=== PATIENT | male | born 1975 | race Caucasian/White ===

== ENCOUNTER 2016-06-04 17:36 | Emergency (ER) | payer MEDICAID, OTHER ==
[2016-06-04] MEDS ORDERED: Sodium Chloride 0.9% 1,000 ML ONE (18:32)
--- NOTE | 2016-06-04 18:34 | EDM.PDOC ---
ED HPI ENT - General Chief Complaint: ENT Problem Stated Complaint: NASAL SURGERY EARLIER TODAY, BLOODY NOSE Time Seen by Provider: 06/04/16 17:55 Source of Information: Reports: Patient, Family History Limitations: Reports: No limitations - History of Present Illness INITIAL COMMENTS - FREE TEXT/NARRATIVE: 40-year-old male presents the ED with active bleeding from bilateral nares. Patient had surgery with ear nose and throat surgeon Dr. Khan at [facility] in [facility] earlier this morning. He was still oozing a bit when he was discharged about 1400 hours but was felt to be within normal limits. In the last 2 hours and also started to aggressively bleed bilaterally perhaps worse on the right as compared to the left. He's coughing up blood and clots and vomiting at times of dark maroon blood as well.heals like he is going to pass out. It is choking anytime and afraid to lay down due to blood running down the back of his throat. Symptom Onset Date: 06/04/16 (1600 hours) Timing/Duration: Reports: Hour(s):, Sudden onset Severity: moderate (2 severe) Location: Reports: right nares, left nares Quality: Reports: Other (he has sprayed Afrin nasal spray up into the nares bilaterally as instructed by his ear nose and throat surgeon with little relief of the bleeding.) Improves with: Reports: None Worsens with: Reports: Other (cannot lay down as he chokes on the blood running down the back of his throat.) Treatments INSURANCE AGENCY MANAGER: Reports: Other (see below) (Afrin nasal spray) - Related Data Allergies/ADRs: Allergies Allergy/AdvReac Type Severity Reaction Status Date / Time alcohol Allergy Hives Verified 06/04/16 17:49 shellfish derived Allergy Other Verified 06/04/16 17:49 warfarin [From Coumadin] Allergy Other Verified 06/04/16 17:49 Home Meds: Home Meds Multivitamin [Multivitamins] 1 tab PO DAILY 06/04/16 [History] Oxymetazoline HCl [Afrin] 1 - 2 spray NASBOTH Q12H 06/04/16 [History] oxyCODONE HCl/Acetaminophen [oxyCODONE-Acetaminophen 5-325] 1 - 2 tab PO Q6H PRN 06/04/16 [History] Past Medical History - Past Surgical History HEENT Surgical History: Reports: Naso-sinus surgery (head turbinectomy and is nasal septoplasty carried out today) Social & Family History - Tobacco Use Smoking Status *Q: Never Smoker - Caffeine Use Caffeine Use: Reports: None - Recreational Drug Use Recreational Drug Use: No - Living Situation & Occupation Living situation: Reports: Occupation: employed ED ROS ENT - Review of Systems Review Of Systems: See Below Constitutional: Reports: weakness HEENT: Reports: Nosebleed, Nose pain Respiratory: Reports: no symptoms Cardiovascular: Reports: No symptoms Endocrine: Reports: no symptoms GI/Abdominal: Reports: Nausea, Vomiting (vomiting of blood and clot mostly maroon in color.) : Reports: no symptoms Musculoskeletal: Reports: no symptoms, muscle pain Skin: Reports: diaphoresis Neurological: Reports: no symptoms Psychiatric: Reports: No symptoms ED EXAM, ENT - Physical Exam Exam: See Below Exam Limited By: Physical impairment (patient is actively bleeding from both nares that are filled with clots. He is vomiting up blood and clots and spitting up blood and clots as well.) General Appearance: moderate distress (he is pallid and mildly diaphoretic. Vital lied down as he chokes on the blood.) Nose: other (I removed the dressing from under his naris which was soaked with blood. On inspection I removed as much clot as possible from both nares but could not ascertain where the bleeding was coming from. Due to the nature of his surgery with septoplasty I sprayed Afrin into both nares in a significant quantity probably half a bottle. I then packed the anterior aspect of the naris with half-inch to be soaked in cocaine and Afrin gently so as not to move the septum out of position. Debbie left in place for approximately 15 minutes the baby pain probably soaked with blood and he continued to bleed actively from both nares. Patient then had basal days vagal attack and became extremely diaphoretic with vomiting. It appears that he is bleeding posteriorly as well as anteriorly from the naris. Therefore further attempts at trying to localize site of bleeding were aborted patient will be sent to [facility] in [facility] by ambulance.) Mouth/Throat: Other (clots bilaterally in the nasopharynx behind the soft palate. He was able to expectorate a good deal he of these but they Accumulating Quite Quickly.) Neck: normal inspection, supple, non-tender, full range of motion. No: lymphadenopathy (L) Respiratory/Chest: no respiratory distress, lungs clear, normal breath sounds, no accessory muscle use Cardiovascular: normal peripheral pulses, no edema, no gallop, no murmur, tachycardia (resting heart rate 138 per minute.) GI/Abdominal: soft, abnormal bowel sounds: (hyperactive) Extremities: normal inspection, normal range of motion, non-tender, normal capillary refill Neurological: alert, oriented, CN II-XII intact, normal cognition Psychiatric: anxious (moderately anxious appropriately.) Skin: Cool, Diaphoretic (clammy) ED ENT PROCEDURES - Epistaxis Procedure Indication: epistaxis, uncontrolled Recent anticoagulants/antiplatlets: No Uncontrolled HTN: No Recent septal/nasal surgery: Yes (had turbinectomy and septoplasty carried out earlier this morning by Dr. Khan in [place].) Site of bleeding: right nare, left nare, anterior, posterior, other (not able to identify source of blood loss. It appears to be posterior and most likely on the right side.) Clearing of clots: suction Topical Meds: phenylephrine (spirin), topical cocaine, other Ice pack to area: Yes Chemical cautery: other (not able to ever identify any specific source of blood loss and therefore no cautery was carried out.) Anterior Packing: other (dental anterior packing was carried out only with half- inch to be soaked in cocaine and Afrin so as not to move the septum plasty. This did seem to bring some control of the bleeding after 15 minutes.) Course - Vital Signs Last Recorded V/S: Last Vital Signs Temp 36.8 C 06/04/16 17:44 Pulse 137 H 06/04/16 17:44 Resp 18 06/04/16 17:44 BP 133/101 H 06/04/16 17:44 Pulse Ox 98 06/04/16 17:44 - Orders/Labs/Meds Meds: Medications Discontinued Medications Generic Name Dose Route Start Last Admin Trade Name Noamq PRN Reason Stop Dose Admin Cocaine HCl Confirm 06/04/16 18:05 Cocaine Hcl Administered 06/04/16 18:06 Dose 4 ml .ROUTE .STK-MED ONE Sodium Chloride Confirm 06/04/16 18:32 Normal Saline Administered 06/04/16 18:33 Dose 1,000 mls @ as directed .ROUTE .STK-MED ONE Metoclopramide HCl 7.5 mg 06/04/16 18:39 Reglan IVPUSH 06/04/16 18:40 ONETIME ONE - Radiology Interpretation Free Text/Narrative:: 40-year-old male presents to the ED with bilateral nasal hemorrhage postop septoplasty and turbinectomy done earlier today by Dr. Khan ear nose and throat surgeon at [facility]. Patient was discharged at 1400 hours today and has some slight bruising per naris at which was felt to be within normal limits. About 1600 hours no started to bleed and then to begin to bleed very heavily. It squirted Afrin nasal spray into each naris apparently with no relief of the bleeding. Upon arrival here I removed the dressing from under his naris as was soaked with blood. Both nares were packed with blood clot and I removed as much of this as possible. He started vomiting up blood and clot in a maroon color. Afrin was sprayed into each naris about a half a bottle to try and provide some degree of control of the hemorrhage but this did not help much. Anterior naris was packed gently with half inch tube gauze soaked in cocaine and Afrin gently so as not to move the septoplasty. This did bring minor control of the bleeding in the anterior nares but appears to be bleeding posteriorly primarily on the right side down the back of his throat. Suffered two vasovagal events while in the ED.blood pressure dropped to as low as 74 systolic at one time. Decision made to send him back to [place] to ear nose and throat surgery for definitive management in the operating room as we do not have this capability. IV of normal saline was started at open. Hemoglobin and hematocrit were ordered. I was able to speak to Dr. Khan as he happens to be machine feeder floorperson this weekend and he is accepted care of this patient. Patient is to travel to the emergency room at [facility] for definitive management likely in the operating room. He is to remain n.p.o. He was given Reglan 7.5 mg IV here to hopefully help stop further vomiting. Paramedics were instructed that they may give him a milligram of Ativan if necessary to provide some degree of sedation. - Re-Assessments/Exams Free Text/Narrative Re-Assessment/Exam: 06/04/16 19:15 hemoglobin is 13.9. Hematocrit was 40.2.BP at the time of discharge was 131/88 with a heart rate of 112. Departure - Departure Time of Disposition: 19:00 Disposition: DC/Tfer to Acute Hospital 02 Condition: serious Clinical Impression: Arterial nasal hemorrhage Forms: ED Department Discharge Additional Instructions: Patient transferred back to [facility] in [facility] where he had ear nose and throat surgery Dr. Khan operate on him earlier today with a bilateral turbinectomy and septoplasty. Sent by EMS to do aggressive bleeding per naris bilaterally. Vasovagal attack x2 in the ED with loss of consciousness.appears to be having an arterial bleed from the right side posteriorly which was not amenable to visualization or cauterization or control of hemorrhage in the ED.
[2016-06-04] MEDS ORDERED: Metoclopramide 10 MG/2 ML SDV IVPUSH ONE (18:39)
[2016-06-04] MEDS ORDERED: Sodium Chloride 0.9% 1,000 ML IV SCH (19:00)
[2016-06-04 19:30] VITALS: BP 131/88
== END 2016-06-04 18:55 ==
LOC: JD.ED 17:36
DX: R04.0 Epistaxis (principal); Z98.890 Other specified postprocedural states; Z88.8 Allergy status to other drugs, medicaments and biological substances; Z91.013 Allergy to seafood
CPT/HCPCS: 30901; 36415; 85014; 85018; 96374; 99284; J2765; J7040